=== PATIENT | female | born 1990 | race Caucasian/White ===

== ENCOUNTER 2016-11-24 17:25 | Emergency (ER) | payer OTHER | END 2016-11-24 18:59 | disposition left against medical advice (07) | LOC: FER 17:25 | DX: R10.9 Unspecified abdominal pain (principal); R11.2 Nausea with vomiting, unspecified; Z53.8 Procedure and treatment not carried out for other reasons ==

== ENCOUNTER 2016-11-27 15:52 | Emergency (ER) | payer OTHER ==
[2016-11-27 16:19] LABS: BILIRUBIN NEGATIVE (NEGATIVE); BLOOD NEGATIVE Ery/uL (NEGATIVE); CLARITY CLEAR (CLEAR); COLOR YELLOW (YELLOW); GLUCOSE (U) NORMAL (NORMAL); KETONE (U) NEGATIVE (NEGATIVE); LEUKOCYTES NEGATIVE Leu/uL (NEGATIVE); NITRITE NEGATIVE (NEGATIVE); PROTEIN NEGATIVE (NEGATIVE); UROBILINOGEN 0.2 mg/dL (0.2-1.0); pH 7.5 (5.0-9.0)
== END 2016-11-27 18:10 | disposition home or self-care (01) ==
LOC: FER 15:52
PROVIDERS: Internal Medicine
DX: O26.91 Pregnancy related conditions, unspecified, first trimester (principal); R10.813 Right lower quadrant abdominal tenderness; R10.814 Left lower quadrant abdominal tenderness; O99.331 Smoking (tobacco) complicating pregnancy, first trimester; Z90.49 Acquired absence of other specified parts of digestive tract; Z3A.00 Weeks of gestation of pregnancy not specified
CPT/HCPCS: 36415; 81003; 84702; 99284

== ENCOUNTER 2021-03-10 21:03 | Emergency (ER) | payer OTHER ==
[~2021-03-10 21:03] MED LIST: COLACE100 MG PO; FEOSOL325 MG PO; MOTRIN600 MG PO; PRENATAL FORMU1 EACH PO
[2021-03-10 22:33] LABS: BASOPHIL 0.7 % (0-2); EOSINOPHIL 0.5 % (0-5); HCT 37.9 % (37.0-47.0); HGB 12.3 g/dl (12.5-16.0); LYMPHOCYTE 31.7 % (15-48); MCH 30.2 pg (25.0-31.0); MCHC 32.5 g/dL (32.0-36.0); MCV 93.1 fL (78.0-100.0); MONOCYTE 7.2 % (0-12); MPV 11.4 fL (6.0-9.5); NRBC 0; PLT 232 K/uL (150-400); RBC 4.07 M/uL (4.20-5.40); RDW 14.6 % (11.5-14.0)
[2021-03-10 22:37] LABS: NEUTROPHIL 59.5 % (41-80)
[2021-03-10 22:45] LABS: BUN/CREAT RATIO (CALC) 16.7 RATIO; CREATININE 0.96 mg/dL (0.51-0.95); POTASSIUM 3.9 mmol/L (3.5-5.1)
[2021-03-10 23:03] LABS: CORONAVIRUS 2019 SARS-COV-2 NEGATIVE (NEGATIVE); INFLUENZA A NAA NEGATIVE (NEGATIVE)
== END 2021-03-10 23:45 | disposition home or self-care (01) ==
LOC: FER 21:03
PROVIDERS: Nurse Practitioner Family
DX: B34.9 Viral infection, unspecified (principal); F17.210 Nicotine dependence, cigarettes, uncomplicated; Z20.822 Contact with and (suspected) exposure to COVID-19
CPT/HCPCS: 36415; 71045; 80048; 83605; 84145; 85025; J7030; U0002